=== PATIENT | female | born 1960 | race Caucasian/White ===

== ENCOUNTER → 2022-06-27 08:33 | Outpatient (BNVA) | payer OTHER, SELFPAY | PROVIDERS: Family Provider Physician Assistant Medical; Visit Provider Nurse Practitioner Family | DX: R53.83 Other fatigue (principal); Z13.1 Encounter for screening for diabetes mellitus; Z78.0 Asymptomatic menopausal state | CPT/HCPCS: 80053; 84443 ==

== ENCOUNTER → 2022-07-01 08:40 | Outpatient (BNVA) | payer OTHER, SELFPAY | PROVIDERS: Family Provider Physician Assistant Medical; Visit Provider Nurse Practitioner Family | DX: R53.83 Other fatigue (principal); R79.89 Other specified abnormal findings of blood chemistry | CPT/HCPCS: 80076; 85025 ==

== ENCOUNTER 2025-02-10 05:00 | Outpatient (CLI) | payer OTHER, SELFPAY | END 2025-02-10 05:01 | disposition home or self-care (01) | LOC: SPT 02-22 12:27 | PROVIDERS: Visit Provider Nurse Practitioner | DX: Z46.89 Encounter for fitting and adjustment of other specified devices (principal); M25.561 Pain in right knee | CPT/HCPCS: L4361 ==

== ENCOUNTER → 2025-02-14 14:58 | Outpatient (BNVA) | payer OTHER, SELFPAY | PROVIDERS: Family Provider Physician Assistant Medical; PCP Family Medicine; Visit Provider Nurse Practitioner | DX: S86.811A Strain of other muscle(s) and tendon(s) at lower leg level, right leg, initial encounter (principal); G89.29 Other chronic pain; S83.206A Unspecified tear of unspecified meniscus, current injury, right knee, initial encounter; Z46.89 Encounter for fitting and adjustment of other specified devices; X58.XXXA Exposure to other specified factors, initial encounter | CPT/HCPCS: 73560; 73565 ==